=== PATIENT | female | born 1960 | race Caucasian/White ===

== ENCOUNTER 2016-09-28 06:54 | Observation (INO) | payer OTHER ==
--- NOTE | ~2016-09-28 | HP ---
History And Physical [facility] [id number] [place]. [address] NAME: YANELY TOMLINSON : 62 STATUS : PRE REF PAT#: [id number] AGE: 55 ADM/REG DATE : MR#: [id number] REPORT SERV DATE: 09/27/16 DICTATED BY: LAURENT VILLAGOMEZ DATE: 09/27/16 REPORT STATUS : Draft TRANSCRIBED BY: MODL DATE: 09/27/16 DATE OF ADMISSION: 09/28/2016 CHIEF COMPLAINT: Right flank pain. HISTORY OF PRESENT ILLNESS: Ms. Tomlinson is a 55-year-old white female with a history of urolithiasis. She recently presented with right flank pain that she states was for several weeks' duration. Her partner says it has been going on for more than a year. She has intermittent nausea and intermittent hematuria. She denies any fever, chills, or dysuria. She has felt fatigued. Noncontrast CT scan of the abdomen and pelvis done earlier this week shows a large obstructing stone in the right proximal ureter with severe right hydronephrosis and thinning of the kidney. The left side has a stone in the mid ureter which is large as well, and causing obstruction and hydronephrosis as well. She is going to undergo bilateral percutaneous nephrostomy tube placement and attempt at bilateral antegrade percutaneous nephrolithotomy, possibly bilaterally. PAST MEDICAL HISTORY: Hypertension which has been difficult to control. PAST SURGICAL HISTORY: Ureteroscopies and lithotripsies. MEDICATIONS: Atenolol. ALLERGIES: NO KNOWN DRUG ALLERGIES. SOCIAL HISTORY: She has a history of tobacco use. She denies alcohol use. FAMILY HISTORY: Her father had sarcoma. PHYSICAL EXAMINATION: GENERAL: Shows a well-developed, well-nourished, white female. VITAL SIGNS: She has elevated blood pressure, and her pulse is in the 50s. She is afebrile. NEURO: She is in no acute distress. She is awake, alert, and oriented x3. HEENT: Her sclerae, anicteric. NECK: Supple. LUNGS: Clear. HEART: Regular rate and rhythm. ABDOMEN: Soft and nontender. Bladder is not distended. Kidneys nontender. EXTREMITIES: Lower extremities show no deformities. IMPRESSION: Bilateral ureteral obstruction secondary to a large proximal calculi. PLAN: Bilateral nephroureteral tube placed by Radiology. This will be done under anesthesia and then, she will be carried to the operating room, where I will attempt bilateral antegrade nephrolithotomies. I told her that based on the amount of time it takes, we may just to one side. We will start on the patient's right side and remove that stone first. History And Physical [address] [place]. [address] NAME: YANELY TOMLINSON : 62 STATUS : PRE REF PAT#: [id number] AGE: 55 ADM/REG DATE : MR#: [id number] REPORT SERV DATE: 09/27/16 DICTATED BY: LAURENT VILLAGOMEZ DATE: 09/27/16 REPORT STATUS : Draft TRANSCRIBED BY: MANUELA DATE: 09/27/16 If it goes well and we have time, we will proceed with left-sided surgery. Potential risks of bleeding, infection, injury to adjacent structures such as lung, pleura, diaphragm, liver, spleen, colon, intestine, gallbladder, and blood vessels and nerves, have all been explained to the patient. She consents to proceed. PF/MANUELA Laurent Villagomez M.D. / [id number] CC: Laurent Villagomez M.D.
--- NOTE | ~2016-09-28 | OP ---
Record Of Operation [facility] [address] [place]. [address] NAME: YANELY SAAB : 62 STATUS : ADM Kylie PAT#: [id number] AGE: 55 ADM/REG DATE : 09/28/16 MR#: [id number] REPORT SERV DATE: 09/28/16 DICTATED BY: LAURENT VILLAGOMEZ DATE: 09/28/16 REPORT STATUS : Draft TRANSCRIBED BY: MODL DATE: 09/28/16 DATE OF PROCEDURE: 09/28/2016 PREOPERATIVE DIAGNOSIS: Bilateral proximal ureteral calculi measuring greater than 2 cm with severe bilateral hydronephrosis. POSTOPERATIVE DIAGNOSIS: Bilateral proximal ureteral calculi measuring greater than 2 cm with severe bilateral hydronephrosis. PROCEDURE: Bilateral percutaneous antegrade ureterolithotomy with in situ lithotripsy, left percutaneous nephrolithotomy with in situ lithotripsy, bilateral antegrade ureteral stent placement, bilateral nephrostomy tube change. SURGEON: Laurent Villagomez M.D. ANESTHESIA: General. ESTIMATED BLOOD LOSS: Estimated at 100 mL. FLUID REPLACEMENT: 1.2 L of crystalloid. DRAINS: 6-[place] Citizen, 26 cm double-J left and right ureteral stent with the strings removed, 20- [place] Citizen Councill style catheters as left and right nephrostomy tubes, a 16-[place] Citizen Villagomez catheter per urethra. INDICATION: A 55-year-old white female, with chronic kidney disease, bilateral ureteral obstruction very proximally from large stone, she also had a large stone in her left mid pole calyx. TECHNIQUE: The patient has gone to the Radiology suite and the radiologist had placed a right nephrostomy tube and a left nephroureteral tube. I started on the right side as this was her symptomatic side. I passed an Amplatz Super Stiff wire down the right nephrostomy tube and coiled it into the renal pelvis. I removed the nephrostomy tube and placed a Vivian exchange catheter and inserted the second wire into the renal pelvis. I removed a Vivian exchange catheter over one of the wires positioned a NephroMax nephrostomy tract balloon dilator. I dilated the tract to 15 atmospheres, held it there for five minutes, and advanced a 25-[place] Citizen sheath over the distended balloon. The tip of the sheath was in the renal pelvis and I released the balloon and removed it. I then inserted the rigid nephroscope. She had the stone on the right side that was at the UPJ at the very proximal ureter. I attempted to grasp and pull out one piece. It was basically grown into the wall of the UPJ. I then used the ultrasonic Lithotripter and grinded it, and fragmented it into pieces, and then extracted the pieces from the UPJ. I was able to clear the entire proximal ureter of stone. When complete, I back-loaded the nephroscope over one of the wires and passed a 6-[place] Citizen, 26 cm double-J right ureteral stent down the right ureter and into the renal pelvis under fluoroscopy. The string and wire were removed. The proximal end was coiled in the renal pelvis. I then removed the nephroscope. Through the sheath I placed a Record Of Operation [address] [place]. [address] NAME: YANELY SAAB : 62 STATUS : ADM Kylie PAT#: [id number] AGE: 55 ADM/REG DATE : 09/28/16 MR#: [id number] REPORT SERV DATE: 09/28/16 DICTATED BY: LAURENT VILLAGOMEZ DATE: 09/28/16 REPORT STATUS : Draft TRANSCRIBED BY: MODL DATE: 09/28/16 20-[place] Citizen Councill style catheter into the renal pelvis. I removed the sheath and filled 4 mL of sterile water into the catheter balloon. I performed a nephrostogram that showed no extravasation, good positioning of the tubes, and sutured the drain to the skin. The patient was re-prepped on the left side. On the left side, she had a nephroureteral tube and the nephrostomy tube. I passed two wires down the left nephroureteral tube into the bladder under fluoroscopy. I then removed it and the nephrostomy tube. Over one of the wires, I positioned a balloon trocar, dilated the tract to 15 atmospheres and held there for five minutes. I then advanced a 25-[place] Citizen sheath over the tract over the balloon. I removed the balloon leaving the wire behind. I advanced the flexible cystoscope. The stones on the left side were more into the mid ureter. They were likewise embedded. I used a grasping forceps and extracted some of those stones. I then used a holmium laser, fragmented the stone into multiple fragments, and extracted the fragments with a NGage basket. I was able to clear the ureter all the way to the level of the iliac vessels of stone. I removed the cystoscope. I placed a rigid nephroscope in. I removed the pieces of the stone that I had broken up. There was also a large stone in the mid pole calyx. I grasped that stone. I had to break it with the ultrasonic Lithotripter and then took a large piece out. I cleared the entire left kidney of stone. I back-loaded the rigid nephroscope over one of the wires. I positioned a 6-[place] Citizen, 26 cm double-J left ureteral stent. The tip was in the bladder. The proximal end in the renal pelvis. I removed the strings and wire. I removed the rigid nephroscope and through the sheath placed a 20-[place] Citizen Councill style catheter. 4 mL of sterile water inflated in the catheter balloon. A nephrostogram was obtained. It showed the tube was in good position. The drain was sutured to the skin with 2-0 Prolene. At this point dressings were applied. The patient was returned to the supine position, extubated, and taken to the recovery unit in stable and satisfactory condition. PF/MODL Laurent Villagomez M.D. / [id number] CC: вИан Danielle M.D.
[~2016-09-28 06:54] MED LIST: ATEN25 PO
[2016-09-28 07:41] LABS: BASOPHILS 0.5 %; BASOPHILS ABSOLUTE 0.04 10/3/uL (0.0-0.16); EOSINOPHILS 4.4 %; EOSINOPHILS ABSOLUTE 0.33 10/3/uL (0.0-0.53); HEMATOCRIT 39.7 % (36.0-48.0); HEMOGLOBIN 13.5 g/dL (12.0-16.0); IMMATURE GRANULOCYTES 0.3 %; IMMATURE GRANULOCYTES ABSOLUTE 0.02 10/3/uL (0.0-0.11); LYMPHOCYTES 35.8 %; LYMPHOCYTES ABSOLUTE 2.71 10/3/uL (0.67-4.30); MEAN CORPUSCULAR HEMOGLOB 30.5 pg (26.0-34.0); MEAN CORPUSCULAR VOLUME 89.6 fL (80-100); MEAN PLATELET VOLUME 13.3 fL (9.2-13.0); MONOCYTES 5.1 %; MONOCYTES ABSOLUTE 0.39 10/3/uL (0.21-1.20); NEUTROPHILS 53.9 %; NEUTROPHILS ABSOLUTE 4.09 10/3/uL (2.02-8.40); PLATELET COUNT 143 10/3/uL (150-400); RBC DISTRIBUTION WIDTH 13.2 % (12.0-16.0); RED CELL COUNT 4.43 10/6/uL (4.0-5.6); WHITE BLOOD CELLS 7.6 10/3/uL (4.5-10.5)
[2016-09-28 07:43] LABS: MANUAL DIFF NO %
[2016-09-28 07:48] LABS: INTERNATIONAL NORMAL RATI 1.1 UNITS (-); PARTIAL THROMBO TIME 32.7 SEC (22.5-37.2); PROTIME (NOT ORD) 13.8 SEC (12.0-14.5)
[2016-09-28 07:52] LABS: BUN (BLOOD UREA NITROGEN) 24 MG/DL (6-23); CALCIUM, SERUM 10.9 MG/DL (8.5-10.4); CHLORIDE, SERUM 117 MMOL/L (96-112); CO2 (CARBON DIOXIDE) 21 MMOL/L (24-34); GFR AFRICAN AMERICAN 30 ML/MIN (>=60); GFR NON AFRICAN AMERICAN 26 ML/MIN (>=60); GLUCOSE, SERUM 116 MG/DL (60-99); POTASSIUM, SERUM 3.9 MMOL/L (3.5-5.3); SODIUM, SERUM 147 MMOL/L (135-148)
[2016-09-28 09:37] LABS: ASCORBIC ACID (UR NOT ORDER) NEG (NEG); BILIRUBIN, URINE NEGATIVE (NEG); KETONE, URINE NEGATIVE (NEG); LEUKOCYTE ESTERASE(NOT OR LARGE (NEG); WBC (NOT ORDERED) (RFLEX) 121 (0-5)
[2016-09-29 04:35] LABS: HEMATOCRIT 35.8 % (36.0-48.0); HEMOGLOBIN 11.8 g/dL (12.0-16.0); MEAN CORPUSCULAR VOLUME 91.1 fL (80-100); MEAN PLATELET VOLUME 13.1 fL (9.2-13.0); PLATELET COUNT 130 10/3/uL (150-400); RBC DISTRIBUTION WIDTH 13.3 % (12.0-16.0); RED CELL COUNT 3.93 10/6/uL (4.0-5.6)
[2016-09-29 04:43] LABS: MANUAL DIFF YES %; WHITE BLOOD CELLS 13.4 10/3/uL (4.5-10.5)
[2016-09-29 04:46] LABS: BUN (BLOOD UREA NITROGEN) 23 MG/DL (6-23); CALCIUM, SERUM 10.3 MG/DL (8.5-10.4); CHLORIDE, SERUM 116 MMOL/L (96-112); CO2 (CARBON DIOXIDE) 18 MMOL/L (24-34); CREATININE 1.92 MG/DL (0.55-1.02); GFR AFRICAN AMERICAN 34 ML/MIN (>=60); GFR NON AFRICAN AMERICAN 29 ML/MIN (>=60); GLUCOSE, SERUM 138 MG/DL (60-99); POTASSIUM, SERUM 4.5 MMOL/L (3.5-5.3); SODIUM, SERUM 143 MMOL/L (135-148)
[2016-09-29 07:42] LABS: LYMPHOCYTES 10 %; LYMPHOCYTES ABSOLUTE (CALC) 1.34 10/3/uL (0.67-4.30); MONOCYTES 2 %; MONOCYTES ABSOLUTE (CALC) 0.27 10/3/uL (0.21-1.20); NEUTROPHILS ABSOLUTE (CALC) 11.79 10/3/uL (2.02-8.40); PLATELET ESTIMATE SLT DEC (ADEQUATE); RBC MORPHOLOGY NORM (NORMAL); SEGMENTED NEUTROPHIL (0) 88 %; TOTAL NUCLEATED CELLS 100
[2016-09-29] MEDS ORDERED: K500 PO (18:48)
[2016-09-29] MEDS ORDERED: NORCO1 TA1 PO (18:48)
[2016-10-03 18:58] LABS: SOURCE OF STONE Left Kidney (()); SOURCE OF STONE Right Kidney (()); STONE COMPOSITION TWO DNR (())
[2017-02-07] MEDS ORDERED: BYSTOLIC10 MG PO (18:04)
== END 2016-09-29 22:18 | disposition home or self-care (01) ==
LOC: CSSUOP 06:54 → RADHOLD 07:00 → SDC/OF 10:05 → CSSUOP 18:32 → 4SO 18:34
PROVIDERS: Urology
PROC: 0TC63ZZ Extirpation of Matter from Right Ureter, Percutaneous Approach (ICD-10-PCS; 2016-09-28)
PROC: 0TC73ZZ Extirpation of Matter from Left Ureter, Percutaneous Approach (ICD-10-PCS; 2016-09-28)
PROC: 0TC13ZZ Extirpation of Matter from Left Kidney, Percutaneous Approach (ICD-10-PCS; principal; 2016-09-28 11:30)
DX: N13.2 Hydronephrosis with renal and ureteral calculous obstruction (principal); I10 Essential (primary) hypertension; E66.9 Obesity, unspecified; Z88.1 Allergy status to other antibiotic agents; Z79.899 Other long term (current) drug therapy; Z90.89 Acquired absence of other organs; Z90.710 Acquired absence of both cervix and uterus
CPT/HCPCS: 50433; 80048; 81001; 82365; 85025; 85610; 85730; 87086; 93005; 96374; 96375; 96376; A9270-GY; C1726; C1729; C1758; C1769; C1892; C1894; C2617; G0378; G0379; J2250; J2405; J2710; J3010; Q9967